=== PATIENT | female | born 1985 | race Caucasian/White ===

== ENCOUNTER → 2016-09-30 | Outpatient (CLI) | payer OTHER ==
[~2016-09-30] MED LIST: BUPR150T5 PO; LEVO25TA PO; SERT-234 PO
== END | disposition home or self-care (01) ==
LOC: C.PATHSPEC 14:56
PROVIDERS: ATTEND Obstetrics & Gynecology
DX: N90.89 Other specified noninflammatory disorders of vulva and perineum (principal)

== ENCOUNTER 2018-07-15 07:47 | Inpatient (IN) ==
[2018-07-15] MEDS ORDERED: BUTALBITAL/ACETAMIN/CAFFEINE TAB PO PRN (07:58)
[2018-07-15] MEDS ORDERED: OXYTOCIN 30 UNITS/500 ML BAG IV PRN ×2 (07:59)
[2018-07-15] MEDS ORDERED: LACTATED RINGER'S 1,000 ML IV PRN ×3 (07:59→18:02)
[2018-07-15 08:21] LABS: Hematocrit (blood only) 34.3 % (37-47); Hemoglobin 11.3 g/dL (12.0-16.0); Mean Corpuscular Volume 84.7 fL (80-100); Mean Platelet Volume 9.4 fL (7.4-10.4); Platelet Count 247 K/uL (130-400); RDW Coefficient of Variation 14.2 % (11.5-14.5); RDW Standard Deviation 43.9 fL (36.4-46.3); Red Blood Count 4.05 M/uL (4.2-5.4); White Blood Count 7.94 K/uL (4.8-10.8)
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
[2018-07-15] MEDS ORDERED: PENICILLIN G POTASSIUM 6 MU in DEXTROSE 5% 250 ML IV ONE (08:30)
[2018-07-15 08:32] LABS: Mean Corpuscular Hgb Conc 32.9 g/dL (32-36)
[2018-07-15] MEDS: LACTATED RINGER'S 1,000 ML IV SCH ×3 (09:15→21:25)
[2018-07-15] MEDS: SERTRALINE HCL 100 MG TABLET PO SCH (11:10)
--- NOTE | 2018-07-15 13:19 | Obstetrical Progress Note ---
Date of Service July 15, 2018 Subjective Comfortable, feeling some ctx. FHT Cat 1 [place] Q 2-4. SVE 5/80/-2 AROM clear with brown/red tinge. Physical Exam Vital Signs (Past 24 Hours): Last Vital Signs Temp 36.7 C 07/15/18 11:00 Pulse 83 07/15/18 12:28 Resp 18 07/15/18 11:00 BP 137/87 07/15/18 12:28
[2018-07-15] MEDS: PENICILLIN G POTASSIUM 3 MU in DEXTROSE 5% 100 ML IV PRN ×3 (13:44→21:25)
[2018-07-15] MEDS ORDERED: ePHEDrine sulfate 50 MG/ML AMP ONE (16:11)
[2018-07-15] MEDS ORDERED: BUPIVACAINE 0.25% 30 ML VIAL ONE (16:11)
[2018-07-15] MEDS ORDERED: fentaNYL citrate 100 MCG/2 ML VIAL ONE (16:11)
[2018-07-15] MEDS ORDERED: fentaNYL 2MCG/ML ROPIV 1.25MG/ML 100 ML BAG EPI ONE (16:12)
--- NOTE | 2018-07-15 17:34 | Anesthesiology Consultation ---
Date of Service July 15, 2018 Assessment & Plan Chart Review Chart Review: Patient NOT seen in Pre Admission Testing and Acceptable Risk for Labor Epidural Consults Requested none ASA ASA2 Proposed Anesthesia Anesthesia Type: Labor Epidural Risk / Benefits Reviewed With: PT / POA / Parent / Guardian, Accepts Plan and Informed Consent Obtained NPO Date Last Intake of Fluids: 07/15/18 Time Last Intake of Fluids: 15:00 Date Last Intake of Solids: 07/15/18 Time Last Intake of Solids: 07:00 History Height/Weight Height: 5 ft 8 in Weight: 102.058 kg Allergies Allergy/AdvReac Type Severity Reaction Status Date / Time No Known Allergies Allergy Mild Verified 07/14/18 19:27 Medications Home Medications Medication Instructions Recorded Confirmed Last Taken sertraline [Zoloft] 100 mg PO DAILY #0 tab 04/17/15 07/15/18 07/14/18 23:59 hjifrtjmoq-dezggcsgcxsao-pwdk 1 cap PO Q6H PRN 05/28/18 07/15/18 07/14/18 17:00 [Fioricet] vit-iron fum-folic ac 1 tab PO DAILY 05/28/18 07/15/18 07/14/18 08:30 [ Vitamin] Humulin N NPH Insulin KwikPen 32 units HS 07/14/18 07/15/18 07/14/18 23:59 insulin aspart U-100 [Novolog 22 units TID 07/14/18 07/15/18 07/15/18 06:30 PenFill U-100 Insulin] Active Medications Generic Name Dose Route Start Last Admin Trade Name Freq PRN Reason Stop Dose Admin Lactated Ringer's 1,000 mls @ 125 mls/hr 07/15/18 08:00 07/15/18 16:45 Lr IV 07/17/18 07:59 500 mls/hr .Q8H JESIKA Infusion Penicillin G Potassium 3 mu/ 106 mls @ 100 mls/hr 07/15/18 12:30 07/15/18 17:26 Dextrose IV 07/25/18 12:29 106 mls/hr Q4H PRN Administration Give until delivery Oxytocin 30 units in 500 mls @ 17 mls/hr 07/15/18 07:59 07/15/18 14:55 Pitocin IV 07/17/18 07:58 1.02 units/hr .Q24H PRN 17 mls/hr Labor Induction/Augmentation Titration Protocol 1.02 UNITS/HR Sertraline HCl 100 mg 07/15/18 09:00 07/15/18 11:10 Zoloft PO 08/14/18 08:59 Not Given DAILY JESIKA Past Medical History Medical History Migraines Asthma (Chronic) Resolved, has not used inhaler in years/\. Right cervical radiculopathy (Acute) Lumbar radiculopathy (Acute) Anemia Gestational diabetes Obesity Past Family History Family History Father Hypertension Past Surgical History Surgical History History of appendectomy (Resolved) History of wisdom tooth extraction (Resolved) History of tonsillectomy (Resolved) History of lumbar fusion L4-L5, 2016 Status post repair of glenoid labrum Right hip Past Anesthesia History No Hx of Anesthesia Complications and No Family Hx of Anesthesia Complications History of PONV Yes Motion Sickness Screening History of Motion Sickness: No Social History Smoking Status: Never smoker Hx Alcohol Use: No Hx Substance Use: No substance use type: does not use Exercise / Class Metabolic Activity II 4-5 Yardwork/Stairs/Walk up hill Physical Exam Vital Signs Last Vital Signs Temp 36.7 C 07/15/18 15:06 Pulse 78 07/15/18 17:26 Resp 20 07/15/18 15:06 BP 129/80 07/15/18 16:33 Pulse Ox 94 07/15/18 17:26 Constitutional + obese ENMT Mouth: no dentition abnormality Thyromental Distance: > or= 3.5 Finger Breadths Mallampati Class: II Neck normal visual inspection and trachea midline; neck extension not limited Respiratory normal respiratory effort Auscultation: lungs clear to auscultation bilaterally Cardiovascular Rate/Rhythm: regular rate and regular rhythm Heart Sounds: no murmur Musculoskeletal Spine: lumbar spine normal to inspection; normal cervical ROM Neurologic moves all extremities Motor/Sensory: no sensory deficit Psychiatric Orientation: alert; + not oriented x 3 Testing Laboratory Results 07/15/18 08:11 07/15/18 07/15/18 07/15/18 15:39 13:27 11:34 POC Glucose 86 72 72 07/15/18 09:21 POC Glucose 80
[2018-07-15] MEDS ORDERED: ePHEDrine sulfate 50 MG/ML AMP IV PRN (18:02)
[2018-07-15] MEDS ORDERED: ONDANSETRON INJ 2 MG/ML 2 ML VIAL IV PRN (18:02)
[2018-07-15] MEDS ORDERED: NALOXONE HCL 0.4 MG/1 ML VIAL/CARP IV PRN (18:02)
[2018-07-15] MEDS ORDERED: DiphenhydrAMINE HCL 50 MG/ML VIAL IV PRN (18:02)
[2018-07-15] MEDS ORDERED: NALBUPHINE HCL INJ 10 MG/ML AMP IV PRN (18:02)
[2018-07-15] MEDS ORDERED: PROMETHAZINE HCL 25 MG in SODIUM CHLORIDE 0.9% 50 ML IV PRN (18:02)
[2018-07-15] MEDS ORDERED: NALOXONE HCL 1 MG in SODIUM CHLORIDE 0.9% 1000ML 1,000 ML IV PRN (18:02)
[2018-07-15] MEDS ORDERED: fentaNYL 2MCG/ML ROPIV 1.25MG/ML 100 ML BAG EPI PRN (18:02)
[2018-07-15] MEDS ORDERED: ONDANSETRON INJ 2 MG/ML 2 ML VIAL ONE (18:04)
--- NOTE | 2018-07-15 19:06 | Obstetrical Progress Note ---
Date of Service July 15, 2018 Subjective Comfortable with epidural. FHT Cat 1 [place] Q 2-3 SVE 5-6/90/-1. Bloody show. Continue to labor. Physical Exam Vital Signs (Past 24 Hours): Last Vital Signs Temp 36.7 C 07/15/18 15:06 Pulse 77 07/15/18 19:02 Resp 20 07/15/18 15:06 BP 139/79 07/15/18 19:01 Pulse Ox 90 07/15/18 19:02
[2018-07-15] MEDS ORDERED: ACETAMINOPHEN 500 MG TAB PO STA (21:28)
--- NOTE | 2018-07-15 22:41 | Obstetrical Progress Note ---
Date of Service July 15, 2018 Subjective Comfortable with epidural. Had headache, BP ok, tylenol has helped. FHT Cat 1 [place] Q 2 SVE 6-7/90/-2 IUPC placed. Continue to labor. Physical Exam Vital Signs (Past 24 Hours): Last Vital Signs Temp 37.2 C 07/15/18 20:30 Pulse 86 07/15/18 22:35 Resp 18 07/15/18 21:47 BP 135/79 07/15/18 22:31 Pulse Ox 96 07/15/18 22:35
[2018-07-16] MEDS ORDERED: fentaNYL citrate 100 MCG/2 ML VIAL ONE (00:41)
[2018-07-16] MEDS ORDERED: BUPIVACAINE 0.25% 30 ML VIAL ONE (00:41)
[2018-07-16] MEDS ORDERED: fentaNYL citrate 100 MCG/2 ML VIAL IV STA (00:43)
[2018-07-16] MEDS ORDERED: BUPIVACAINE 0.25% 30 ML VIAL INFIL ONE (00:51)
--- NOTE | 2018-07-16 00:56 | Anesthesiology Progress Note ---
Date of Service July 16, 2018 at 0048,patient's epidural was bolused w/ 7 ml 0.25% bupivacaine + 100 mcgs fentanyl + 2 ml 0.9% NSS for a total of 11 ml 0.17% bupivacaine w/incremental aspiration and injection.vital signs are stable. Physical Exam Vital Signs Last Vital Signs Temp 37.5 C 07/15/18 22:30 Pulse 83 07/16/18 00:51 Resp 18 07/16/18 00:26 BP 109/59 L 07/16/18 00:47 Pulse Ox 92 07/16/18 00:51 Results & Data Medications Administered Lactated Ringer's (Lr) 1,000 mls @ 125 mls/hr IV .Q8H JESIKA Stop: 07/17/18 07:59 Last Infusion: 07/15/18 22:25 Dose: 125 mls/hr Documented by: [id number] Infusion: 07/15/18 21:26 Dose: 0 mls/hr Documented by: [id number] Admin: 07/15/18 21:25 Dose: 125 mls/hr Documented by: [id number] Infusion: 07/15/18 19:24 Dose: 125 mls/hr Documented by: [id number] Infusion: 07/15/18 16:45 Dose: 500 mls/hr Documented by: [id number] Admin: 07/15/18 16:22 Dose: 999 mls/hr Documented by: [id number] Infusion: 07/15/18 16:22 Dose: 999 mls/hr Documented by: [id number] Infusion: 07/15/18 16:10 Dose: 999 mls/hr Documented by: [id number] Infusion: 07/15/18 14:55 Dose: 125 mls/hr Documented by: [id number] Infusion: 07/15/18 13:45 Dose: 0 mls/hr Documented by: [id number] Infusion: 07/15/18 10:15 Dose: 125 mls/hr Documented by: [id number] Infusion: 07/15/18 09:17 Dose: 0 mls/hr Documented by: [id number] Admin: 07/15/18 09:15 Dose: 125 mls/hr Documented by: [id number] Penicillin G Potassium 3 mu/ (Dextrose) 106 mls @ 100 mls/hr IV Q4H PRN PRN Reason: Give until delivery Stop: 07/25/18 12:29 Last Admin: 07/15/18 21:25 Dose: 106 mls/hr Documented by: [id number] Infusion: 07/15/18 18:26 Dose: 106 mls/hr Documented by: [id number] Admin: 07/15/18 17:26 Dose: 106 mls/hr Documented by: [id number] Infusion: 07/15/18 14:50 Dose: 0 mls/hr Documented by: [id number] Admin: 07/15/18 13:44 Dose: 106 mls/hr Documented by: [id number] Oxytocin (Pitocin) 30 units in 500 mls @ 19 mls/hr IV .Q24H PRN; Protocol PRN Reason: Labor Induction/Augmentation Stop: 07/17/18 07:58 Last Titration: 07/15/18 19:00 Dose: 1.14 units/hr, 19 mls/hr Documented by: [id number] Titration: 07/15/18 14:55 Dose: 1.02 units/hr, 17 mls/hr Documented by: [id number] Titration: 07/15/18 14:24 Dose: 0.9 units/hr, 15 mls/hr Documented by: [id number] Titration: 07/15/18 12:30 Dose: 0.78 units/hr, 13 mls/hr Documented by: [id number] Titration: 07/15/18 12:00 Dose: 0.66 units/hr, 11 mls/hr Documented by: [id number] Titration: 07/15/18 11:30 Dose: 0.54 units/hr, 9 mls/hr Documented by: [id number] Titration: 07/15/18 11:05 Dose: 0.42 units/hr, 7 mls/hr Documented by: [id number] Titration: 07/15/18 10:30 Dose: 0.3 units/hr, 5 mls/hr Documented by: [id number] Titration: 07/15/18 10:00 Dose: 0.18 units/hr, 3 mls/hr Documented by: [id number] Admin: 07/15/18 09:29 Dose: 0.06 units/hr, 1 mls/hr Documented by: [id number] Cosigned by: [id number] Ropivacaine (Epidural (L&D)) 100 ml EPI PRN PRN; Protocol PRN Reason: Pain R/T Labor Stop: 07/16/18 18:01 Last Admin: 07/16/18 00:49 Dose: 100 ml Documented by: [id number] Cosigned by: [id number] Sertraline HCl (Zoloft) 100 mg PO DAILY JESIKA Stop: 08/14/18 08:59 Last Admin: 07/15/18 11:10 Dose: Not Given Documented by: [id number]
[2018-07-16] MEDS: PENICILLIN G POTASSIUM 3 MU in DEXTROSE 5% 100 ML IV PRN ×2 (01:33→05:26)
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
[2018-07-16] MEDS: LACTATED RINGER'S 1,000 ML IV SCH (05:16)
--- NOTE | 2018-07-16 06:46 | Anesthesia Procedure Note ---
Date of Service July 16, 2018 Anesthesia Post Epidural Note Vital Signs Vital Signs: Temp Pulse Resp BP Pulse Ox 37.4 C 90 18 135/76 98 07/16/18 06:00 07/16/18 06:45 07/16/18 06:00 07/16/18 06:45 07/16/18 06:35 Notes Mental Status: alert / awake / arousable Nausea / Vomiting: adequately controlled Pain: adequately controlled Airway Patency, RR, SpO2: stable & adequate BP & HR: stable & adequate Hydration State: stable & adequate Neuraxial Anesthesia: was administered Anesthetic Complications: no major complications apparent Epidural: Removed without complications and With tip intact
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
[2018-07-16 06:58] LABS: Base Excess Cord Venous Blood -5.1 mEq/L (-7.7-1.9); Cord Venous Blood HCO3 18 mmol/L (18.4-26.8); Cord Venous Blood PCO2 30 mmHg (30.4-57.2); Cord Venous Blood PO2 33 mmHg (14.1-43.3)
[2018-07-16 07:02] LABS: Base Excess Cord Arterial Bld -4.8 mEq/L (-9-1.8); CO2 Cord Arterial Blood 52 mmHg (39.1-73.5); HCO3 Cord Arterial Blood 23 mmol/L (19.7-28.5); pH Cord Arterial Blood 7.26 (7.1-7.38)
[2018-07-16] MEDS: IBUPROFEN 600 MG TAB PO PRN ×4 (07:14→21:29)
[2018-07-16] MEDS: SERTRALINE HCL 100 MG TABLET PO SCH (10:22)
[2018-07-16] MEDS ORDERED: OXYTOCIN 30 UNITS/500 ML BAG IV PRN (10:24)
[2018-07-16] MEDS ORDERED: OXYCODONE/ACETAMINOPHEN 5mg/325mg TAB PO PRN (10:24)
[2018-07-16] MEDS ORDERED: BISACODYL 10 MG SUPP PR PRN (10:24)
[2018-07-16] MEDS ORDERED: HYDROCORTISONE ACETATE 25 MG SUPP PR PRN (10:24)
[2018-07-16] MEDS ORDERED: SUPERCREAM 0.870% 15 GM JAR EXT PRN (10:24)
[2018-07-16] MEDS ORDERED: BENZOCAINE 20% AER SPR 82.5 GM CAN EXT PRN (10:24)
[2018-07-16] MEDS ORDERED: DIPHTHERIA/TETANUS/PERTUSSIS 0.5 ML SYR/VIAL IM ONE (10:24)
[2018-07-16] MEDS: PRENATAL VITAMIN 1 TAB PO SCH (13:26)
[2018-07-16] MEDS: DOCUSATE SODIUM 100 MG CAP PO SCH ×2 (13:26→19:48)
[2018-07-16] MEDS: ACETAMINOPHEN 325 MG TAB PO PRN (19:48)
[2018-07-17] MEDS: IBUPROFEN 600 MG TAB PO PRN ×5 (02:57→23:25)
[2018-07-17] MEDS: ACETAMINOPHEN 325 MG TAB PO PRN (06:10)
[2018-07-17 06:14] LABS: Hematocrit (blood only) 30.7 % (37-47); Hemoglobin 9.7 g/dL (12.0-16.0)
--- NOTE | 2018-07-17 07:27 | Obstetrical Progress Note ---
Date of Service <Amarjit Hart - Last Filed: 07/17/18 07:27> July 17, 2018 Assessment & Plan <Amarjit HartDO - Last Filed: 07/17/18 07:27> (1) Spontaneous vaginal delivery: 32 y/o , at 38 weeks - PPD #1, continue routine post- care, encourage ambulation, encourage (2) Insulin controlled gestational diabetes mellitus (GDM) in third trimester: IUP at 38 weeks with poorly controlled GDM on insulin for IOL. Subjective <Amarjit HartDO - Last Filed: 07/17/18 07:27> Ambulation: ambulating normally Voiding: no voiding problems Passing Gas:: Yes Diet Tolerance:: regular diet Lochia:: Small Feeding Type:: breast feeding Karo states she is doing well today, no acute events overnight. She denies fever, chills, chest pains, shortness of breath, nausea, vomiting. Physical Exam <Amarjit HartDO - Last Filed: 07/17/18 07:27> Vital Signs (Past 24 Hours) Last Vital Signs Temp 36.8 C 07/17/18 03:40 Pulse 71 07/17/18 03:40 Resp 18 07/17/18 03:40 BP 135/82 07/17/18 03:40 Pulse Ox 98 07/16/18 09:30 Constitutional WD/WN, vitals as above cooperative and comfortable Eyes + anicteric sclerae and EOM intact bilaterally Neck normal visual inspection and trachea midline Respiratory normal respiratory effort, lungs clear to auscultation Cardiovascular Rate/Rhythm: regular rate and regular rhythm Heart Sounds: no murmur Gastrointestinal (Abdomen) uterine fundus is firm, non-tender, 3cm inferior to umbilicus Musculoskeletal Head/Neck/Chest: normocephalic and head atraumatic Skin no rashes, warm and dry Neurologic moves all extremities and awake Psychiatric A+Ox3, euthymic affect Results & Data <Amarjit HartDO - Last Filed: 07/17/18 07:27> Laboratory Results Laboratory Results - last 24 hr 07/17/18 06:01 Hgb 9.7 L Hct 30.7 L Medications Administered Acetaminophen (Tylenol) 650 mg PO Q6H PRN PRN Reason: Pain/PETERS/Fever Stop: 08/15/18 10:23 Last Admin: 07/17/18 06:10 Dose: 650 mg Documented by: [id number] Admin: 07/16/18 19:48 Dose: 650 mg Documented by: [id number] Benzocaine (Dermoplast Pain Relieving [place]) 1 appln EXT PRN PRN PRN Reason: Perineal Discomfort Stop: 08/15/18 10:23 Last Admin: 07/16/18 13:29 Dose: 1 appln Documented by: [id number] Docusate Sodium (Colace) 100 mg PO BID [facility] Stop: 08/15/18 10:23 Last Admin: 07/16/18 19:48 Dose: 100 mg Documented by: [id number] Admin: 07/16/18 13:26 Dose: 100 mg Documented by: [id number] Ibuprofen (Motrin) 600 mg PO Q4H PRN PRN Reason: Pain/PETERS/Cramping/Fever Stop: 08/15/18 06:40 Last Admin: 07/17/18 02:57 Dose: 600 mg Documented by: [id number] Admin: 07/16/18 21:29 Dose: 600 mg Documented by: [id number] Admin: 07/16/18 17:47 Dose: 600 mg Documented by: [id number] Admin: 07/16/18 12:34 Dose: 600 mg Documented by: [id number] Admin: 07/16/18 07:14 Dose: 600 mg Documented by: [id number] Prenat Multivit/[place]/Iron/Folic Ac ( Vitamin) 1 tab PO QAM [facility] Stop: 08/15/18 10:23 Last Admin: 07/16/18 13:26 Dose: 1 tab Documented by: [id number] Sertraline HCl (Zoloft) 100 mg PO DAILY [facility] Stop: 08/14/18 08:59 Last Admin: 07/16/18 10:22 Dose: 100 mg Documented by: [id number] Admin: 07/15/18 11:10 Dose: Not Given Documented by: [id number] <Lonnie Weaver MD - Last Filed: 07/27/18 18:16> Co-Signing Physician Notes Patient evaluated and agree findings and plan
[2018-07-17] MEDS: DOCUSATE SODIUM 100 MG CAP PO SCH ×2 (07:47→19:55)
[2018-07-17] MEDS: PRENATAL VITAMIN 1 TAB PO SCH (07:48)
[2018-07-17] MEDS: SERTRALINE HCL 100 MG TABLET PO SCH (07:48)
[2018-07-17] MEDS ORDERED: BISACODYL 5 MG TABEC PO SCH (20:00)
[2018-07-18] MEDS: DOCUSATE SODIUM 100 MG CAP PO SCH (07:32)
[2018-07-18] MEDS: PRENATAL VITAMIN 1 TAB PO SCH (07:32)
[2018-07-18] MEDS: SERTRALINE HCL 100 MG TABLET PO SCH (07:32)
--- NOTE | 2018-07-18 08:19 | Obstetrical Progress Note ---
Date of Service July 18, 2018 Assessment & Plan (1) Insulin controlled gestational diabetes mellitus (GDM) in third trimester: (2) Spontaneous vaginal delivery: doing well, routine care, f/u 6 wks pp check. breast feeding. given labile bp, will plan office bp check in one wk. Day #:: 2 Subjective Ambulation: ambulating normally Voiding: no voiding problems Diet Tolerance:: regular diet Lochia:: Small Feeding Type:: breast feeding pt having occas bp elevations and also very normal values. no complaints like mccray or visual change. ready to go home. Physical Exam Vital Signs (Past 24 Hours) Last Vital Signs Temp 36.7 C 07/17/18 23:30 Pulse 73 07/17/18 23:30 Resp 18 07/17/18 23:30 BP 134/81 07/17/18 23:30 Pulse Ox 96 07/17/18 23:30 Constitutional WD/WN, vitals as above Respiratory normal respiratory effort, lungs clear to auscultation Cardiovascular Rate/Rhythm: regular rate and regular rhythm Gastrointestinal (Abdomen) Inspection/Auscultation: abdomen normal to inspection Percussion/Palpation: abdomen soft fundus firm 2 cm below umbilicus Musculoskeletal nt calves. Psychiatric A+Ox3, euthymic affect
== END 2018-07-18 11:15 | disposition home or self-care (01) | DRG 807 ==
LOC: 4S1 07:47 → 4S2 07-16 09:00
DX: O70.0 First degree perineal laceration during delivery; Z3A.38 38 weeks gestation of pregnancy; O24.424 Gestational diabetes mellitus in childbirth, insulin controlled; Z79.4 Long term (current) use of insulin; Z37.0 Single live birth

== ENCOUNTER 2018-08-28 16:52 | Inpatient (IN) ==
[2018-08-28] MEDS ORDERED: ACETAMINOPHEN 500 MG TAB PO STA (17:32)
[2018-08-28] MEDS ORDERED: SODIUM CHLORIDE 0.9% 1000ML 1,000 ML IV SCH (17:45)
[2018-08-28] MEDS ORDERED: cefTRIAXone SODIUM 1,000 MG/50 ML BAG IV STA (18:01)
[2018-08-28] MEDS ORDERED: ONDANSETRON INJ 2 MG/ML 2 ML VIAL IV STA (18:01)
[2018-08-28 18:20] LABS: Eosinophils # (auto) 0.05 K/uL (0-0.5); Eosinophils % (auto) 0.6 %; Hematocrit (blood only) 34.7 % (37-47); Hemoglobin 11.4 g/dL (12.0-16.0); Immature Granulocytes # (auto) 0.01 K/uL (0.00-0.02); Immature Granulocytes % (auto) 0.1 %; Lymphocytes # (auto) 0.84 K/uL (1.2-3.4); Lymphocytes % (auto) 9.9 %; Mean Corpuscular Hgb Conc 32.9 g/dL (32-36); Mean Corpuscular Volume 83.4 fL (80-100); Mean Platelet Volume 8.7 fL (7.4-10.4); Monocytes # (auto) 0.72 K/uL (0.11-0.59); Monocytes % (auto) 8.5 %; Neutrophils # (auto) 6.84 K/uL (1.4-6.5); Neutrophils % (auto) 80.9 %; Platelet Count 272 K/uL (130-400); RDW Coefficient of Variation 15.2 % (11.5-14.5); RDW Standard Deviation 46.9 fL (36.4-46.3); Red Blood Count 4.16 M/uL (4.2-5.4); White Blood Count 8.46 K/uL (4.8-10.8)
[2018-08-28 18:38] LABS: Albumin Level 3.7 gm/dl (3.4-5.0); BUN Creatinine Ratio 14.2 (10-20); Creatinine Clr Calc Pharmacy 126.5 ml/min; Est GFR (African American) 123.1; Est GFR (Non-African American) 106.2; Potassium 3.5 mmol/L (3.5-5.1)
[2018-08-28 18:41] LABS: Albumin Globulin Ratio 0.8 (0.9-2); Bilirubin,Total 0.4 mg/dl (0.2-1); Globulin 4.8 gm/dl (2.5-4.0); Total Protein 8.5 gm/dl (6.4-8.2)
[2018-08-28] MEDS ORDERED: MoRPHine SULFATE 4 MG/ML 1 ML CARP\\VIAL IV STA (19:32)
[2018-08-28] MEDS ORDERED: IBUPROFEN 200 MG/10 ML UDC PO STA (19:41)
[2018-08-28] MEDS ORDERED: SODIUM CHLORIDE 0.9% 1000ML 1,000 ML IV ONE (19:41)
--- NOTE | 2018-08-28 20:05 | History & Physical Report ---
Date of Service August 28, 2018 32-year-old woman who presents 6 weeks post delivery with mastitis she is been treated through 3 courses of mastitis most recently by Dr. Marin with outpatient dicloxacillin she states she is worsening since that day Thursday of this week and had fever and chills today she called me I did offer the emergency room and she came in at this stage she reports fevers chills and discomfort on the left breast redness just generally feeling unwell some discharge from the breast as well she has significant pain Assessment & Plan (1) Mastitis: Admission for IV antibiotics she is failed cephalosporins and dicloxacillin will start vancomycin IV with the pharmacy consult pain medication hopefully she improves over 48 hours if she fails to we will consider imaging the breast for possible abscess History of Present Illness Primary Care Provider: Felipe Wheatley DO Allergies Allergy/AdvReac Type Severity Reaction Status Date / Time No Known Allergies Allergy Mild Verified 08/28/18 19:22 Home Medications Home Medications Medication Instructions Recorded Confirmed Type sertraline [Zoloft] 100 mg PO HS #0 tab 04/17/15 08/28/18 History Vitamin 1 tab PO QAM 05/28/18 08/28/18 History acetaminophen [Tylenol Extra 500 mg PO Q6H PRN 08/28/18 08/28/18 History Strength] dicloxacillin 500 mg PO QID 08/28/18 08/28/18 History ibuprofen 200 mg PO Q6H PRN 08/28/18 08/28/18 History lecithin 1,200 mg PO TID 08/28/18 08/28/18 History norethindrone (contraceptive) 0.35 mg PO HS 08/28/18 08/28/18 History Patient History Medical History Mastitis (Acute) Migraines Asthma (Chronic) Resolved, has not used inhaler in years/\. SI (sacroiliac) joint dysfunction (Chronic) Right cervical radiculopathy (Acute) Lumbar radiculopathy (Acute) PTSD (post-traumatic stress disorder) (Chronic) Anemia Gestational diabetes Obesity Surgical History History of appendectomy (Resolved) History of wisdom tooth extraction (Resolved) History of tonsillectomy (Resolved) Status post arthroscopy of hip (Resolved) History of lumbar fusion L4-L5, 2016 Status post repair of glenoid labrum Right hip Family History Father Hypertension Social History Preferred Language: Japanese Communication Ability: Effective Beliefs That Will Affect Care: None marital status: Current Living Situation: Spouse Feels Safe at Home: Yes Smoking Status: Never smoker Hx Alcohol Use: No Hx Substance Use: No Physical Exam Constitutional: + ill appearing Respiratory: normal respiratory effort, lungs clear to auscultation Cardiovascular: RRR, no murmur, no edema Chest (Breasts): Additional Comments: Diffuse redness on the left breast the breast is very uncomfortable the right breast is normal I cannot palpate any obvious abscess but the breast is tender Results & Data Vital Signs (Past 12 Hours) Vital Signs Temp Pulse Pulse Resp BP BP Pulse Ox 08/28/18 19:40 95 08/28/18 19:39 39.3 C H 114 H 18 121/67 95 08/28/18 16:54 37.9 C H 110 H 20 134/79 97
[2018-08-28] MEDS ORDERED: VANCOMYCIN CONSULT ACTIVE PRN (20:46)
[2018-08-28] MEDS ORDERED: ONDANSETRON INJ 2 MG/ML 2 ML VIAL IV PRN (20:46)
[2018-08-28] MEDS ORDERED: ACETAMINOPHEN 325 MG TAB PO PRN (20:46)
[2018-08-28] MEDS ORDERED: VANCOMYCIN HCL 2,000 MG in SODIUM CHLORIDE 0.9% 500 ML IV ONE (21:30)
[2018-08-28] MEDS: OXYCODONE/ACETAMINOPHEN 5mg/325mg TAB PO PRN (21:48)
[2018-08-28] MEDS: LACTATED RINGER'S 1,000 ML IV SCH (21:49)
--- NOTE | 2018-08-28 22:02 | Emergency Department Note ---
Entered by Cha Dockery acting as a scribe for History of Present Illness General Chief complaint: Fever Stated complaint: MASTITIS - PAIN,FEVER,CHILLS,HEAD & BODY ACHE Source: patient Mode of arrival: ambulatory Limitations: no limitations History of Present Illness Provider complaint: Fever Onset (ago): hour(s) (today) Severity: similar to prior episodes (similar to fever 3 days ago) Pain Consistency: + other (worsening) Maximum Pain Intensity: 6 Quality: + other (fever) Associated symptoms: + headaches and + other (Additional symptoms: mastitis, body aches) The patient is a 32 year old female who presents to the Emergency Room with complaints of a worsening fever starting today. The patient reports that she developed a fever 3 days ago and was subsequently prescribed antibiotics when she called Dr. Marin. She states that her fevers resolved after she started taking the antibiotics but returned today. She notes that she is also currently suffering from mastitis. She reports that she had a full term vaginal 6 weeks ago. She states that she is currently breast-feeding and has experienced 2 prior episodes of mastitis. She notes that the first episode occurred a week after giving and was located on the right side and that the second episode occurred 2 weeks ago and was located on both sides. She states that her second episode was treated with Doxycycline. The patient reports that her current episode is also located on both sides and is characterized by redness, bilateral pain, and pus. She notes that she has continued to pump milk despite her symptoms. She adds that her mastitis has been accompanied by flu-like symptoms such as body aches and headaches. She states that she sees [facility] and talked to Dr. Fine about her symptoms earlier today. Home Medications Home Medications Medication Instructions Recorded Confirmed Type sertraline [Zoloft] 100 mg PO HS #0 tab 04/17/15 08/28/18 History Vitamin 1 tab PO QAM 05/28/18 08/28/18 History acetaminophen [Tylenol Extra 500 mg PO Q6H PRN 08/28/18 08/28/18 History Strength] dicloxacillin 500 mg PO QID 08/28/18 08/28/18 History ibuprofen 200 mg PO Q6H PRN 08/28/18 08/28/18 History lecithin 1,200 mg PO TID 08/28/18 08/28/18 History norethindrone (contraceptive) 0.35 mg PO HS 08/28/18 08/28/18 History Allergies Allergy/AdvReac Type Severity Reaction Status Date / Time No Known Allergies Allergy Mild Verified 08/28/18 19:22 Past Med/Surg History Medical History Mastitis (Acute) Migraines Asthma (Chronic) Resolved, has not used inhaler in years/\. SI (sacroiliac) joint dysfunction (Chronic) Right cervical radiculopathy (Acute) Lumbar radiculopathy (Acute) PTSD (post-traumatic stress disorder) (Chronic) Anemia Gestational diabetes Obesity Surgical History History of appendectomy (Resolved) History of wisdom tooth extraction (Resolved) History of tonsillectomy (Resolved) Status post arthroscopy of hip (Resolved) History of lumbar fusion L4-L5, 2016 Status post repair of glenoid labrum Right hip Family History Father Hypertension Social History Preferred Language: Nepali Communication Ability: Effective Banking Services Officer Required: No Beliefs That Will Affect Care: None marital status: Current Living Situation: Alone Current Living Situation Comment: lives with 6-wk-old baby, no other adults Other Information That Helps Us Care for You: No Feels Safe at Home: Yes Safety Concerns: Feels Safe At This Time Smoking Status: Never smoker Do You Dip or Chew Tobacco: No Second Hand Exp osure: No Tobacco Cessation Education Requested by Patient: No Hx Alcohol Use: Yes (not currently) Alcohol type: beer Hx Substance Use: No Review of Systems See HPI for pertinent positives & negatives. and A total of 10 systems reviewed and were otherwise negative Physical Exam Vital Signs Vital Signs - 24 hr 08/28/18 16:54 08/28/18 19:39 08/28/18 19:40 Temperature 37.9 C H 39.3 C H Temperature Source Oral Oral Sepsis Recent Fever Within 48 Hours No Sepsis New/Unexplained Change in Mental Status No Sepsis Action Taken by Nursing No Action Required Pulse Rate 110 H Pulse Rate [Right Finger] 114 H Respiratory Rate 20 18 Respiratory Effort / Characteristics Non-Labored Spontaneous Respiratory Depth Normal Respiratory Pattern Regular Blood Pressure 134/79 Blood Pressure [Left Arm] 121/67 Blood Pressure Mean 97 Blood Pressure Mean [Left Arm] 85 Blood Pressure Position [Left Arm] Lying Pulse Oximetry 97 95 95 Oxygen Delivery Method Room Air Room Air GENERAL: sitting up in bed with chills, minimal distress EYE EXAM: normal conjunctiva, PERRL and EOM's grossly intact OROPHARYNX: no exudate, no erythema, lips, buccal mucosa, and tongue normal and mucous membranes are moist NECK: supple, no nuchal rigidity, no adenopathy, non-tender LUNGS: Clear to auscultation. Normal chest wall mechanics HEART: Tachycardic rate, no murmurs, S1 normal and S2 normal BREASTS: Small amount of mild draining from bilateral nipples. Tenderness from 1 o'clock to 5 o'clock position with erythema on the right breast. Left breast has no significant erythema. ABDOMEN: abdomen soft, non-tender, normo-active bowel sounds, no masses, no rebound or guarding. BACK: Back is symmetrical on inspection and there is no deformity, no midline tenderness, no CVA tenderness. SKIN: no rashes and no bruising UPPER EXTREMITIES: upper extremities are grossly normal. LOWER EXTREMITIES: No pitting edema. NEURO EXAM: Normal sensorium, cranial nerves II-XII grossly intact, normal speech, no gross weakness of arms, no gross weakness of legs. Course ED COURSE: Vital signs were reviewed and were normal. The patients medical record was reviewed. The above diagnostic studies were performed and reviewed. ED treatments and interventions as stated above. 1723: The patient was evaluated in room C6. A complete history and physical examination was performed. 1921: I reviewed the patient's case with Dr. Fine - FAMILY WORKER, [facility]. Dr. Fine will evaluate the patient for further management. Based on the patients age, coexisting illnesses, exam and lab findings the decision to treat as an inpatient was made. The patient remained stable while under my care The patient will be evaluated for further management. Consultations Consultation #1: I reviewed the patient's case with Dr[facility] Fine [facility] Fine will evaluate the patient for further management. Time: 19:21 Administered Medications Lactated Ringer's (Lr) 1,000 mls @ 125 mls/hr IV .Q8H JESIKA Stop: 09/27/18 20:45 Last Admin: 08/28/18 21:49 Dose: 125 mls/hr Documented by: [id number] Oxycodone/Acetaminophen (Percocet 5mg/325mg) 1 tab PO Q4H PRN PRN Reason: Pain Stop: 09/11/18 19:44 Last Admin: 08/28/18 21:48 Dose: 1 tab Documented by: [id number] Discontinued Medications Acetaminophen (Tylenol) 1,000 mg PO NOW STA Stop: 08/28/18 17:33 Last Admin: 08/28/18 18:09 Dose: 1,000 mg Documented by: [id number] Sodium Chloride (Nss 1000ml) 1,000 mls @ 999 mls/hr IV .Q1H1M JESIKA Stop: 08/28/18 18:45 Last Infusion: 08/28/18 19:38 Dose: 0 mls/hr Documented by: [id number] Admin: 08/28/18 18:09 Dose: 999 mls/hr Documented by: [id number] Ceftriaxone Sodium (Rocephin) 1,000 mg in 50 mls @ 100 mls/hr IV NOW STA Stop: 08/28/18 18:30 Last Infusion: 08/28/18 19:38 Dose: 0 mls/hr Documented by: [id number] Admin: 08/28/18 18:09 Dose: 100 mls/hr Documented by: [id number] Sodium Chloride (Nss 1000ml) 1,000 mls @ 999 mls/hr IV .Q1H1M ONE Stop: 08/28/18 20:41 Last Infusion: 08/28/18 20:40 Dose: 0 mls/hr Documented by: [id number] Admin: 08/28/18 19:46 Dose: 999 mls/hr Documented by: [id number] Ibuprofen (Motrin) 400 mg PO NOW STA Stop: 08/28/18 19:42 Last Admin: 08/28/18 19:45 Dose: 400 mg Documented by: [id number] Morphine Sulfate (Morphine Sulfate) 3 mg IV NOW STA Stop: 08/28/18 19:33 Last Admin: 08/28/18 19:46 Dose: 3 mg Documented by: [id number] Ondansetron HCl (Zofran) 4 mg IV NOW STA Stop: 08/28/18 18:02 Last Admin: 08/28/18 18:09 Dose: 4 mg Documented by: [id number] Medical Decision Making Differential Diagnosis Differential diagnosis includes etiologies such as sepsis, UTI, pneumonia, metabolic, electrolyte abnormalities, cardiac sources, intracerebral event, toxicologic, neurologic, as well as others were entertained. Medical Records Attestation: I reviewed the patient's medical records. Home Medications Current Medication List: was personally reviewed by me Laboratory Data Attestation: I reviewed the patient's lab results. Result diagrams: 08/28/18 18:01 08/28/18 18:01 Lab Results 08/28/18 08/28/18 08/28/18 Range/Units 18:01 18:01 19:33 WBC 8.46 (4.8-10.8) K/uL RBC 4.16 L (4.2-5.4) M/uL Hgb 11.4 L (12.0-16.0) g/dL Hct 34.7 L (37-47) % MCV 83.4 (80-100) fL MCH 27.4 (25-34) pg MCHC 32.9 (32-36) g/dL RDW Std Deviation 46.9 H (36.4-46.3) fL RDW Coeff of Jani 15.2 H (11.5-14.5) % Plt Count 272 (130-400) K/uL MPV 8.7 (7.4-10.4) fL Immature Gran % (Auto) 0.1 % Neut % (Auto) 80.9 % Lymph % (Auto) 9.9 % Overton % (Auto) 8.5 % Eos % (Auto) 0.6 % Baso % (Auto) 0.0 % Immature Gran # (Auto) 0.01 (0.00-0.02) K/uL Neut # (Auto) 6.84 H (1.4-6.5) K/uL Lymph # (Auto) 0.84 L (1.2-3.4) K/uL Overton # (Auto) 0.72 H (0.11-0.59) K/uL Eos # (Auto) 0.05 (0-0.5) K/uL Baso # (Auto) 0.00 (0-0.2) K/uL Sodium 136 (136-145) mmol/L Potassium 3.5 (3.5-5.1) mmol/L Chloride 102 (98-107) mmol/L Carbon Dioxide 26 (21-32) mmol/L Anion Gap 8.0 (3-11) BUN 11 (7-18) mg/dl Creatinine 0.75 (0.6-1.2) mg/dl Est Cr Clr Drug Dosing 126.5 ml/min Est GFR ( Amer) 123.1 Est GFR (Non-Af Amer) 106.2 BUN/Creatinine Ratio 14.2 (10-20) Glucose 93 (70-99) mg/dl Lactate 2.3 H* (0.4-2.0) mmol/L Calcium 9.0 (8.5-10.1) mg/dl Total Bilirubin 0.4 (0.2-1) mg/dl AST 11 L (15-37) U/L ALT 25 (12-78) U/L Alkaline Phosphatase 75 (45-117) U/L Total Protein 8.5 H (6.4-8.2) gm/dl Albumin 3.7 (3.4-5.0) gm/dl Globulin 4.8 H (2.5-4.0) gm/dl Albumin/Globulin Ratio 0.8 L (0.9-2) Lipase 237 (73-393) U/L Blood Pressure Blood Pressure Findings: Normal blood pressure MDM Narrative Patient is a 32-year-old female who presents the ER for bilateral breast pain. She delivered her child 6 weeks ago. She has been treated for mastitis for a total of 3 times. This is her third treatment. She is been on dicloxacillin as an outpatient for the past several days and has worsening left breast pain. Upon arrival she is found to be febrile and tachycardic. She does have a lactate of 2.6. No significant leukocytosis or anemia. Based on this I do favor that she is septic secondary to a cellulitis/mastitis. Patient was given IV Rocephin. She is given IV fluids oral Tylenol oral Motrin. BMP along with LFTs bilirubin lipase is unremarkable. Case was discussed with the hospitalist and patient was admitted for a further work-up of her sepsis secondary to mastitis. Impression & Plan Sepsis, Mastitis Discharge Plan Visit Data *Final* Discharge Date/Time: 08/28/18 20:33 Chief Complaint: Fever Stated Complaint: MASTITIS - PAIN,FEVER,CHILLS,HEAD & BODY ACHE ED Provider: Emmett Bernard Discharge Problem: Sepsis, Mastitis Patient Disposition: Admitted As Inpatient Discharge Instructions Interventions: ED Discharge Assessment Last Done: 08/28/18 20:33 Discharge Problem: Sepsis Qualifiers: Sepsis type: sepsis due to unspecified organism Qualified Code(s): A41.9 - Sepsis, unspecified organism The scribe's documentation has been prepared under my direction and personally reviewed by me in its entirety. I confirm that the note above accurately reflects all work, treatment, procedures, and medical decision making performed by me.
[2018-08-28] MEDS: SERTRALINE HCL 100 MG TABLET PO SCH (22:35)
[2018-08-28] MEDS ORDERED: PROMETHAZINE HCL 25 MG in SODIUM CHLORIDE 0.9% 50 ML IV PRN (22:49)
[2018-08-28] MEDS: MoRPHine SULFATE 2 MG/ML CARP IV PRN (23:29)
[2018-08-29] MEDS: MoRPHine SULFATE 2 MG/ML CARP IV PRN ×4 (03:42→23:20)
[2018-08-29] MEDS: VANCOMYCIN HCL 1,500 MG in SODIUM CHLORIDE 0.9% 500 ML IV SCH ×3 (06:14→22:08)
[2018-08-29] MEDS: KETOROLAC 30 MG/ML VIAL IV PRN ×2 (07:19→19:40)
--- NOTE | 2018-08-29 07:36 | Progress Note ---
Date of Service Patient admitted yesterday for severe mastitis she is on IV vancomycin at this stage she says her fever is improving she still has pain in the left breast she has decided to stop breast-feeding at this day stage she also complains of a headache August 29, 2018 Physical Exam Physical Exam: Her vital signs are stable she is febrile with a high of 39.2 C she is on vancomycin first-line for acute mastitis we will follow her course for 24 to 48 hours vancomycin assistance from pharmacy pain medication Results & Data Vital Signs (Past 12 Hours) Vital Signs Temp Pulse Pulse Pulse Resp BP BP 08/29/18 05:15 38.5 C H 08/29/18 03:40 39.2 C H 108 H 18 08/29/18 00:05 38.1 C H 08/28/18 23:15 39.1 C H 100 H 20 08/28/18 20:38 37.6 C H 105 H 20 08/28/18 20:33 37.8 C H 105 H 18 121/67 08/28/18 19:40 08/28/18 19:39 39.3 C H 114 H 18 121/67 BP Pulse Ox 08/29/18 05:15 08/29/18 03:40 104/68 96 08/29/18 00:05 08/28/18 23:15 101/65 97 08/28/18 20:38 111/68 95 08/28/18 20:33 96 08/28/18 19:40 95 08/28/18 19:39 95
[2018-08-29 07:52] LABS: Basophils # (auto) 0.01 K/uL (0-0.2); Basophils % (auto) 0.1 %; Hematocrit (blood only) 29.8 % (37-47); Immature Granulocytes # (auto) 0.02 K/uL (0.00-0.02); Immature Granulocytes % (auto) 0.2 %; Lymphocytes # (auto) 2.18 K/uL (1.2-3.4); Lymphocytes % (auto) 16.7 %; Mean Corpuscular Hgb Conc 33.6 g/dL (32-36); Mean Corpuscular Volume 82.8 fL (80-100); Mean Platelet Volume 8.5 fL (7.4-10.4); Monocytes # (auto) 0.81 K/uL (0.11-0.59); Monocytes % (auto) 6.2 %; Neutrophils # (auto) 10.05 K/uL (1.4-6.5); Neutrophils % (auto) 76.8 %; Platelet Count 256 K/uL (130-400); RDW Standard Deviation 48.7 fL (36.4-46.3); White Blood Count 13.07 K/uL (4.8-10.8)
[2018-08-29] MEDS: BUTALBITAL/ACETAMIN/CAFFEINE TAB PO PRN (07:54)
[2018-08-29] MEDS: PRENATAL VITAMIN 1 TAB PO SCH (08:16)
[2018-08-29] MEDS: LACTATED RINGER'S 1,000 ML IV SCH (10:59)
--- NOTE | 2018-08-29 11:18 | Obstetrical Progress Note ---
Date of Service l. August 29, 2018 Results & Data Vital Signs (Past 12 Hours) Vital Signs Temp Pulse Resp BP BP Pulse Ox 08/29/18 07:55 37.6 C H 92 H 20 90/57 L 99 08/29/18 05:15 38.5 C H 08/29/18 03:40 39.2 C H 108 H 18 104/68 96 08/29/18 00:05 38.1 C H
--- NOTE | 2018-08-29 12:12 | Pharmacy Report ---
Pharmacy Abx Initial Consult - Date of Service August 29, 2018 - Pharmacy Dosing Scope Date of Consult: 08/28/18 Consultation requested by: Dr. Fine Pharmacy is consulted to initiate vancomycin IV dosing therapy, order appropriate labs and adjust drug dose/frequency. - Subjective The patient is a 32 year old F admitted on 08/28/18 19:52. - Objective Height: 5 ft 8 in Weight: 88.5 kg Vital Signs (Past 12hrs): Vital Signs Temp Pulse Resp BP BP Pulse Ox 08/29/18 07:55 37.6 C H 92 H 20 90/57 L 99 08/29/18 05:15 38.5 C H 08/29/18 03:40 39.2 C H 108 H 18 104/68 96 08/29/18 00:05 38.1 C H Lab Results (24hrs): Laboratory Tests (24 Hours) 08/29/18 08/28/18 08/28/18 07:08 18:01 18:01 WBC 13.07 H 8.46 Neut # (Auto) 10.05 H 6.84 H Creatinine 0.75 Est Cr Clr Drug Dosing 126.5 - Assessment & Plan Assessment 32 year old F receiving empiric vancomycin for severe mastitis refractory to treatment with multiple PO antibiotics (clindamycin, Bactrim DS, dicloxacillin) Tmax this am: 39.2 WBC: 13.07 Plan Vancomycin IV * Estimated PK Parameters: Vd 0.7 L/kg, Charles 0.104 hr-1, t1/2 6.7 hr, estimated CrCl > 120 mL/min * Loading dose: 2000 mg (22 mg/kg) * Maintenance dose: 1500 mg IV (17 mg/kg) every 8 hours * Will target trough of 15-20 for this severe mastitis * Trough level ordered for 08/30/18 @0530 prior to the 5th dose * Serum creatinine also ordered with am labs * A more aggressive dosing regimen being utilized due to patient currently and severe infection refractory to multiple courses of antibiotics Pharmacy will continue to follow and will adjust dose/frequency as necessary. Thank you.
[2018-08-29] MEDS: IBUPROFEN 600 MG TAB PO PRN (12:31)
[2018-08-29] MEDS: OXYCODONE/ACETAMINOPHEN 5mg/325mg TAB PO PRN ×3 (12:32→20:54)
[2018-08-29] MEDS ORDERED: OXYCODONE/ACETAMINOPHEN 5mg/325mg TAB PO PRN (13:33)
[2018-08-29] MEDS ORDERED: IBUPROFEN 200 MG TAB PO STA (13:34)
--- NOTE | 2018-08-29 15:17 | Obstetrical Progress Note ---
Date of Service Patient is still spiking temperatures although she is only received 2 total doses of vancomycin I have ordered blood cultures would like to give her 48 hours of treatment if this fails consider imaging for possible abscess although clinically on exam I did not palpate one. On review of up-to-date vancomycin is considered first-line for this I have discussed with pharmacy for their input on this as well and they are researching at the moment August 29, 2018 Results & Data Vital Signs (Past 12 Hours) Vital Signs Temp Pulse Resp BP BP Pulse Ox 08/29/18 14:36 38.1 C H 08/29/18 13:30 39.5 C H 111 H 24 111/76 96 08/29/18 12:30 39 C H 08/29/18 11:15 36.9 C 85 18 105/61 96 08/29/18 07:55 37.6 C H 92 H 20 90/57 L 99 08/29/18 05:15 38.5 C H 08/29/18 03:40 39.2 C H 108 H 18 104/68 96
[2018-08-29] MEDS ORDERED: cefTRIAXone SODIUM 1,000 MG in DEXTROSE 5% 50 ML IV SCH (15:30)
--- NOTE | 2018-08-29 16:08 | Obstetrical Progress Note ---
Date of Service spoke with pharmacy, will add Rohithin. August 29, 2018 Results & Data Vital Signs (Past 12 Hours) Vital Signs Temp Pulse Resp BP Pulse Ox 08/29/18 14:36 38.1 C H 08/29/18 13:30 39.5 C H 111 H 24 111/76 96 08/29/18 12:30 39 C H 08/29/18 11:15 36.9 C 85 18 105/61 96 08/29/18 07:55 37.6 C H 92 H 20 90/57 L 99 08/29/18 05:15 38.5 C H
[2018-08-29] MEDS: cefTRIAXone SODIUM 2,000 MG in DEXTROSE 5% 50 ML IV SCH (17:00)
[2018-08-29] MEDS: SERTRALINE HCL 100 MG TABLET PO SCH (20:54)
[2018-08-30] MEDS: OXYCODONE/ACETAMINOPHEN 5mg/325mg TAB PO PRN ×4 (00:47→18:53)
[2018-08-30] MEDS: ZOLPIDEM TARTRATE 10 MG TAB PO PRN ×2 (01:26→23:36)
[2018-08-30] MEDS: LACTATED RINGER'S 1,000 ML IV SCH ×2 (01:26→14:35)
[2018-08-30] MEDS: KETOROLAC 30 MG/ML VIAL IV PRN (04:26)
[2018-08-30] MEDS ORDERED: VANCOMYCIN TROUGH SCH (05:30)
[2018-08-30] MEDS: VANCOMYCIN HCL 1,500 MG in SODIUM CHLORIDE 0.9% 500 ML IV SCH (06:18)
[2018-08-30 06:28] LABS: Basophils # (auto) 0.01 K/uL (0-0.2); Basophils % (auto) 0.1 %; Eosinophils # (auto) 0.17 K/uL (0-0.5); Eosinophils % (auto) 1.7 %; Hematocrit (blood only) 26.4 % (37-47); Hemoglobin 8.6 g/dL (12.0-16.0); Immature Granulocytes # (auto) 0.03 K/uL (0.00-0.02); Immature Granulocytes % (auto) 0.3 %; Lymphocytes # (auto) 2.41 K/uL (1.2-3.4); Lymphocytes % (auto) 23.5 %; Mean Corpuscular Hgb Conc 32.6 g/dL (32-36); Mean Corpuscular Volume 84.6 fL (80-100); Mean Platelet Volume 8.1 fL (7.4-10.4); Monocytes # (auto) 0.77 K/uL (0.11-0.59); Monocytes % (auto) 7.5 %; Neutrophils # (auto) 6.87 K/uL (1.4-6.5); Neutrophils % (auto) 66.9 %; Platelet Count 198 K/uL (130-400); RDW Standard Deviation 49.8 fL (36.4-46.3); Red Blood Count 3.12 M/uL (4.2-5.4); White Blood Count 10.26 K/uL (4.8-10.8)
[2018-08-30 07:04] LABS: Est GFR (African American) 139.3; Est GFR (Non-African American) 120.2
--- NOTE | 2018-08-30 07:07 | Gynecologic Progress Note ---
Date of Service Patient feels much better from the point of febrile activity. She has not had a fever in approximately 24 hours she is on vancomycin and a third-generation ce phalosporin she still complains of a lot of left breast pain and is taking pain medication for this she says she feels much better it is just the pain is not resolving August 30, 2018 Assessment & Plan (1) Mastitis: Improving from a fever point of view will get imaging to rule out abscess on the left breast Physical Exam Chest (Breasts): Additional Comments: Left breast is considerably less red the breast is somewhat engorged I do not feel an obvious breast abscess there is no exquisite tenderness Results & Data Vital Signs (Past 12 Hours) Vital Signs Temp Pulse Pulse Resp BP BP Pulse Ox 08/30/18 04:10 37.2 C 95 H 17 109/68 92 08/29/18 23:15 37.1 C 84 16 114/72 96 08/29/18 19:46 36.8 C 76 18 100/63 96
--- NOTE | 2018-08-30 08:14 | Pharmacy Report ---
Pharmacy Abx Dose Progress Nt - Date of Service August 30, 2018 - Pharmacy Dosing Scope The patient is currently receiving the following antimicrobial agents per Pharmacy consult: Vancomycin 1500mg IV every 8 hours Ceftriaxone 2000mg IV Q24H - Objective Vital Signs (Past 12hrs): Vital Signs Temp Pulse Resp BP Pulse Ox 08/30/18 04:10 37.2 C 95 H 17 109/68 92 08/29/18 23:15 37.1 C 84 16 114/72 96 Lab Results (24hrs): Laboratory Tests (24 Hours) 08/30/18 08/30/18 08/30/18 06:15 06:15 06:15 WBC 10.26 Neut # (Auto) 6.87 H Creatinine 0.62 Est Cr Clr Drug Dosing 153.0 Vancomycin Trough 11.8 Micro Results: 08/29/18 15:33 Aerobic Blood Culture - Pending Blood Anaerobic Blood Culture - Pending 08/29/18 15:49 Aerobic Blood Culture - Pending Blood Anaerobic Blood Culture - Pending - Risk Factors for Resistance * Antimicrobial use within the last 90 days - PO Bactrim, clindamycin, dicloxa cillin - Assessment & Plan Assessment 32 year old F receiving IV vancomycin & ceftriaxone for severe mastitis refractory to treatment with multiple PO antibiotics (clindamycin, Bactrim DS, dicloxacillin) No abscess on palpation, blood cultures drawn, imaging ordered. Patient afebrile today. Day # 3 of antimicrobial therapy Patient has discontinued d/t 3rd episode of mastitis in 6 weeks, now requiring IV antibiotics and hospital admission. Infant with patient and patient's mother in room. Plan Vancomycin IV * Trough level of 11.8 mcg/mL is subtherapeutic * Change to Vancomycin 1750 mg IV every 8 hours will begin 6 hours after last dose * Goal trough level for treatment refractory mastitis : 15 to 20 mcg/mL * Trough level ordered for: 08/31/18 prior to 1200 dose * A more aggressive dosing regimen being utilized due severe infection refractory to multiple courses of antibiotics Ceftriaxone 2000mg IV Q24H -- for Wt > 80kg Pharmacy will continue to follow and will adjust dose/frequency as necessary. Thank you.
[2018-08-30] MEDS: PRENATAL VITAMIN 1 TAB PO SCH (08:26)
[2018-08-30] MEDS: IBUPROFEN 600 MG TAB PO PRN ×4 (08:27→23:36)
--- NOTE | 2018-08-30 09:06 | Ultrasound Report ---
Study: Breast ultrasound. HISTORY: Pain FINDINGS: Mild soft tissue edematous change. No evidence for abscess or collection. Mild prominence o f the subareolar ducts consistent with patient's history of breast-feeding. IMPRESSION: 1. Mild soft tissue edematous change. 2. No evidence for abscess or collection. Electronically signed by: Joss Cabrera M.D. 08/30/2018 9:05 AM
[2018-08-30] MEDS: BUTALBITAL/ACETAMIN/CAFFEINE TAB PO PRN (10:16)
[2018-08-30] MEDS: VANCOMYCIN HCL 1,750 MG in SODIUM CHLORIDE 0.9% 500 ML IV SCH ×2 (11:52→20:05)
[2018-08-30] MEDS: cefTRIAXone SODIUM 2,000 MG in DEXTROSE 5% 50 ML IV SCH (16:32)
[2018-08-30] MEDS ORDERED: MAGNESIUM HYDROXIDE SUSP 30 ML UDC PO PRN (16:53)
[2018-08-30] MEDS: DOCUSATE SODIUM 100 MG CAP PO SCH (20:09)
[2018-08-30] MEDS: SERTRALINE HCL 100 MG TABLET PO SCH (20:09)
[2018-08-30] MEDS ORDERED: LORazepam 0.5 MG TAB PO PRN (20:31)
[2018-08-30] MEDS: MoRPHine SULFATE 2 MG/ML CARP IV PRN (21:19)
[2018-08-31] MEDS: OXYCODONE/ACETAMINOPHEN 5mg/325mg TAB PO PRN ×5 (03:36→23:20)
[2018-08-31] MEDS: VANCOMYCIN HCL 1,750 MG in SODIUM CHLORIDE 0.9% 500 ML IV SCH ×3 (03:37→20:02)
[2018-08-31] MEDS: LACTATED RINGER'S 1,000 ML IV SCH (03:37)
[2018-08-31 06:41] LABS: Creatinine Clr Calc Pharmacy 163.6 ml/min; Est GFR (African American) 142.4; Est GFR (Non-African American) 122.8
[2018-08-31] MEDS: IBUPROFEN 600 MG TAB PO PRN ×3 (07:42→23:20)
[2018-08-31] MEDS: DOCUSATE SODIUM 100 MG CAP PO SCH ×2 (07:42→21:01)
[2018-08-31] MEDS: PRENATAL VITAMIN 1 TAB PO SCH (07:44)
--- NOTE | 2018-08-31 08:16 | Obstetrical Progress Note ---
Date of Service August 31, 2018 Assessment & Plan (1) Mastitis: continue current IV antibiotics as she has been afebrile now since Thursday at 1330. one blood culture is growing gram positive cocci in clusters. no ID or sensitvities yet. Would await ID from blood culture before swithing to po antibiotics. she has already been on dicloxacilin, bactrim DS, cephalexin prior to her admission. coing well since the addition of rocephin to her antibiotic regimen. Present on Admission?: Yes Day #:: 3 Subjective Ambulation: ambulating normally Voiding: no voiding problems Passing Gas:: Yes Diet Tolerance:: regular diet Lochia:: Small Feeding Type:: bottle feeding Current Pain Level(1-10): 5 (continues to have pain however she reports that it is much better. has history of anxiety and received one dose of ativan last even ing which helped her sleep better. requiring narcotics but only every 6-12 hours. still pumping the affected breast but is not going to continue to nurse. ) Review of Systems All systems reviewed & are unremarkable except as noted in HPI & below patient feels right breast is somewhat engorged this morning but not tender. left breast is subjectively feeling less painful as well. Physical Exam Vital Signs (Past 24 Hours) Last Vital Signs Temp 36.7 C 08/31/18 07:30 Pulse 61 08/31/18 07:30 Resp 18 08/31/18 07:30 BP 136/87 08/31/18 07:30 Pulse Ox 97 08/31/18 07:30 Constitutional WD/WN, vitals as above Chest (Breasts) Additional Comments: right breast is without redness or induration or tenderness. left breast without masses but is still indurated but less so & still with some erythema that is also improved.
--- NOTE | 2018-08-31 09:34 | Gynecologic Progress Note ---
Date of Service August 31, 2018 Assessment & Plan (1) Mastitis: responding to iv abx. need to see final on blood cx. i did curbside ID, Dr. Sweeney, will recall him if staph aureus grows but otherwise will consider po course of omnicef and bactrim. will await further micro readings. Subjective pt notes left breast softer today but still on and off painful, requiring percocet and motrin. she has opted to stop nursing and so has been instructed a bout binding and intermittent pumping only to relief. she is concerned about that but realizes now with 3 episodes of mastitis that she will stop. Physical Exam Constitutional: WD/WN, vitals as above Chest (Breasts): Breast: normal palpation of breasts (normal on right. slightly tender on left inferior portion. ) and + breast tenderness (tender on left inferior. bruised appearing but no erythema); no breast mass Results & Data Vital Signs (Past 12 Hours) Vital Signs Temp Pulse Resp BP Pulse Ox 08/31/18 07:30 36.7 C 61 18 136/87 97 08/31/18 03:35 36.6 C 71 20 142/89 H 95 08/30/18 23:30 36.6 C 65 18 132/82 94
[2018-08-31] MEDS ORDERED: VANCOMYCIN TROUGH SCH (11:30)
[2018-08-31 11:34] LABS: Basophils # (auto) 0.02 K/uL (0-0.2); Basophils % (auto) 0.3 %; Eosinophils # (auto) 0.27 K/uL (0-0.5); Eosinophils % (auto) 4.6 %; Hematocrit (blood only) 28.1 % (37-47); Hemoglobin 9.2 g/dL (12.0-16.0); Immature Granulocytes # (auto) 0.05 K/uL (0.00-0.02); Immature Granulocytes % (auto) 0.8 %; Lymphocytes # (auto) 1.67 K/uL (1.2-3.4); Lymphocytes % (auto) 28.2 %; Mean Corpuscular Hgb Conc 32.7 g/dL (32-36); Mean Corpuscular Volume 84.1 fL (80-100); Mean Platelet Volume 8.6 fL (7.4-10.4); Monocytes # (auto) 0.47 K/uL (0.11-0.59); Monocytes % (auto) 7.9 %; Neutrophils # (auto) 3.45 K/uL (1.4-6.5); Neutrophils % (auto) 58.2 %; Platelet Count 221 K/uL (130-400); RDW Coefficient of Variation 15.4 % (11.5-14.5); RDW Standard Deviation 47.9 fL (36.4-46.3); Red Blood Count 3.34 M/uL (4.2-5.4); White Blood Count 5.93 K/uL (4.8-10.8)
[2018-08-31] MEDS: BUTALBITAL/ACETAMIN/CAFFEINE TAB PO PRN ×2 (13:22→19:40)
--- NOTE | 2018-08-31 13:48 | Pharmacy Report ---
Pharmacy Abx Dose Short Note - Date of Service August 31, 2018 - Assessment & Plan Assessment 32 year old F receiving IV vancomycin and ceftriaxone for treatment of mastitis refractory to multiple courses of PO antibiotics Day # 4 of antimicrobial therapy. (08/29) Blood cultures x 2: 1 of 2 growing gram positive cocci in clusters (PCR negative for S.aureus and MRSA) * Possible contamination? Await final results Plan Vancomycin * Trough level of 18.7 mcg/mL is therapeutic * Continue dose of 1750 mg IV every 8 hours * Goal trough level for mastitis (possible bacteremia) : 15 to 20 mcg/mL * Will obtain follow-up trough if patient remains on vancomycin for another 48 hours Ceftriaxone * Continue 2 g IV q24h -dose appropriate based on weight and indication Pharmacy will continue to follow and will adjust dose/frequency as necessary. Thank you.
[2018-08-31] MEDS: cefTRIAXone SODIUM 2,000 MG in DEXTROSE 5% 50 ML IV SCH (16:54)
--- NOTE | 2018-08-31 19:01 | Obstetrical Progress Note ---
Date of Service August 31, 2018 Assessment & Plan (1) Mastitis: still afebrile on iv abx. blood cx still pending. per lab will have more of an idea of organism tomorrow. for now will remain in house for iv abx and see if more suspicious for contaminant if they are able to tell tomorrow. pt made aware by nursing. Results & Data Vital Signs (Past 12 Hours) Vital Signs Temp Pulse Resp BP Pulse Ox 08/31/18 15:15 36.7 C 66 18 138/85 08/31/18 07:30 36.7 C 61 18 136/87 97
[2018-08-31] MEDS: SERTRALINE HCL 100 MG TABLET PO SCH (21:01)
[2018-09-01] MEDS: VANCOMYCIN HCL 1,750 MG in SODIUM CHLORIDE 0.9% 500 ML IV SCH ×2 (03:54→11:09)
--- NOTE | 2018-09-01 07:39 | Gynecologic Progress Note ---
Date of Service September 01, 2018 Assessment & Plan (1) Mastitis: c/w iv abx, last labs with stable hgb and nl wbc. (2) Positive blood culture: per micro will get read on organism by mid day today. only one bottle of four but again, in discussion with ID need to know suspected organism. If not raising concern, out pt abx would be omnicef 300mg po bid and bactrim ds one po bid, i suspect we should plan for 10d. pt uses [facility]. temp curve has been normal. bps are labile. i do not suspect chest tightness is significant as it goes away completely at times. d/w pharmacy and no known association with vanco. pt advised to be ambulatory and do flexion/ext exercises while in bed to prevent dvt and thereby pe. since i don't know her LOS, will get scds to bedside. Subjective pt feels left breast is unchanged since yesterday. still feels sore off and on. hand expressed a little last night as the breast was rock hard but now just binding and using cabbage leaves. has no concern for right breast. no fevers. is noting intermittent chest tightness that she thinks is when the vanco is infusing. i am unaware of association. her vital signs are normal during these episodes. no sob, no leg pain. no sx right now. Physical Exam Constitutional: WD/WN, vitals as above Chest (Breasts): Breast: normal inspection of breasts and + breast tenderness (left breast tendern); + abnormal palpation of breast (right breast normal, soft, nt; left breast more full, min erythema) and no breast mass Musculoskeletal: no calf pain or edema Results & Data Vital Signs (Past 12 Hours) Vital Signs Temp Pulse Resp BP BP Pulse Ox 09/01/18 04:10 36.7 C 63 16 149/83 H 96 08/31/18 23:10 36.5 C 57 L 16 145/92 H 144/91 H 96 08/31/18 20:30 36.5 C 54 L 18 135/86
[2018-09-01 07:47] LABS: Creatinine Clr Calc Pharmacy 150.6 ml/min; Est GFR (African American) 138.5; Est GFR (Non-African American) 119.5
[2018-09-01] MEDS: PRENATAL VITAMIN 1 TAB PO SCH (07:59)
[2018-09-01] MEDS: DOCUSATE SODIUM 100 MG CAP PO SCH (07:59)
[2018-09-01] MEDS: IBUPROFEN 600 MG TAB PO PRN (07:59)
[2018-09-01] MEDS: OXYCODONE/ACETAMINOPHEN 5mg/325mg TAB PO PRN (08:00)
[2018-09-01] MEDS ORDERED: OXYCODONE HCL IR 5 MG TAB (IMMEDIATE RELEASE) PO PRN (10:17)
[2018-09-01] MEDS: BUTALBITAL/ACETAMIN/CAFFEINE TAB PO PRN (14:15)
--- NOTE | 2018-09-01 15:23 | Internal Medicine Consult Note ---
Date of Consultation September 01, 2018 Assessment & Plan (1) Positive blood culture: SEATER GR[employer]ER is considering whether it is a contaminant or source from her mastitis and will eventually make a determination based on culture results and what the home antibiotic will be (2) Blood pressure elevated without history of HTN: Patient's blood pressures been labile during her hospital stay this likely may be attributed to nonsteroidal use which she was taking for pain and headache control. Her initial headache that she had presentation I do not feel was from her hypertension more migrainous in nature and is not recurred. At no time during her hospital stay she had chest pain or pressure. She is somewhat fatigued but this is typical for her state. At this time given the variability of her blood pressure without endorgan strain or damage that we can see by lab work or physical exam I recommend lifestyle modification prior to instituting and medical therapy. The patient's mother does however have hypertension and only takes an angiotensin receptor jayleen and hydrochlorthiazide. This and educated the patient about avoiding caffeinated beverages alcohol beverages and to keep her salt intake less than 2 g a day. She did have recent thyroid checks but this could also be checked a few weeks in the future if she continues to have problems with lability of her blood pressure. History of Present Illness Attending Physician: Miguel Fine MD, FACOG History of Present Illness Consulted for labile hypertension the patient who is few weeks now with mastitis. I entered the room patient was sitting comfortably holding her baby her mother was in the room. Patient states that she feels okay except for fatigue. She had initially had some headache when she presented but this is her typical headache treated as a migraine. Patient is never had issues with blood pressure. She does have a family history with her mother having hypertensive issues. She said no chest pain no recurrence of her had a dyspnea with exertion laboratories upon review are fairly stable. Patient has been given nonsteroidals Allergies Allergy/AdvReac Type Severity Reaction Status Date / Time No Known Allergies Allergy Mild Verified 08/28/18 19:22 Home Medications Home Medications Medication Instructions Recorded Confirmed Type sertraline [Zoloft] 100 mg PO HS #0 tab 04/17/15 08/28/18 History Vitamin 1 tab PO QAM 05/28/18 08/28/18 History acetaminophen [Tylenol Extra 500 mg PO Q6H PRN 08/28/18 08/28/18 History Strength] ibuprofen 200 mg PO Q6H PRN 08/28/18 08/28/18 History lecithin 1,200 mg PO TID 08/28/18 08/28/18 History norethindrone (contraceptive) 0.35 mg PO HS 08/28/18 08/28/18 History oxycodone 10 mg PO Q6 PRN #8 tab 09/01/18 Rx Patient History Medical History Mastitis (Acute) Migraines Asthma (Chronic) Resolved, has not used inhaler in years/\. SI (sacroiliac) joint dysfunction (Chronic) Right cervical radiculopathy (Acute) Lumbar radiculopathy (Acute) PTSD (post-traumatic stress disorder) (Chronic) Anemia Gestational diabetes Obesity Surgical History History of appendectomy (Resolved) History of wisdom tooth extraction (Resolved) History of tonsillectomy (Resolved) Status post arthroscopy of hip (Resolved) History of lumbar fusion L4-L5, 2016 Status post repair of glenoid labrum Right hip Family History Father Hypertension Social History Preferred Language: Kiswahili Communication Ability: Effective Fiber Designer Required: No Beliefs That Will Affect Care: None marital status: Current Living Situation: Alone Current Living Situation Comment: lives with 6-wk-old baby, no other adults Other Information That Helps Us Care for You: No Feels Safe at Home: Yes Safety Concerns: Feels Safe At This Time Smoking Status: Never smoker Do You Dip or Chew Tobacco: No Second Hand Exposure: No Tobacco Cessation Education Requested by Patient: No Hx Alcohol Use: Yes (not currently) Alcohol type: beer Hx Substance Use: No Review of Systems Review of Systems: ROS: well nourished well developed. No double vision blurry vision no recurrence of her headache No problems with speech or swallowing No palpitations, some breast pain consistent with her mastitis No Wheezing or breathing issues No abdominal pain nausea vomiting diarrhea changes in appetite or weight No burning urine urine frequency or changes in color No focal joint pain or muscle pain No skin rashes or oral lesions No unusual bruising or bleeding No focused back pain or numbness or loss of strength No changes in memory or confusion Physical Exam Physical Exam: The patient appeared well nourished and normally developed. Vital signs as documented. Head exam is unremarkable. normocephalic, atraumatic Neck is without jugular venous distension, thyromegaly, or lymphademopathy Lungs are clear to auscultation and percussion. Cardiac exam reveals Rhythm is regular. First and second heart sounds normal. Abdominal exam reveals normal bowel sounds, no masses, no organomegaly Extremities are nonedematous and both pedal pulses are present Neurologic exam is A&Ox3, no focal deficits, strength is equal bilateral Psychologically seems neither anxious or depressed Skin is warm Dry without bruises or lesions Results & Data Vital Signs (Past 12 Hours) Vital Signs Temp Pulse Resp BP BP Pulse Ox 09/01/18 14:20 36.7 C 58 L 20 150/88 H 95 09/01/18 11:25 36.8 C 62 18 144/83 H 96 09/01/18 08:45 61 156/84 H 09/01/18 08:01 153/97 H 09/01/18 08:00 36.7 C 59 L 18 161/102 H 97 09/01/18 04:10 36.7 C 63 16 149/83 H 96
[2018-09-02] MEDS ORDERED: VANCOMYCIN TROUGH ONE (03:30)
--- NOTE | 2018-09-06 07:30 | Discharge Summary ---
Date of Service September 06, 2018 Patient was admitted for severe mastitis on August 28 at that time she was started on ceftriaxone and vancomycin initially she was still spiking temperatures in the first 24 hours blood cultures were done which ended up being positive. The patient received IV antibiotics until September 01 at that time she was discharged home by Dr. Marin on Omnicef she was given instructions for follow-up At the time of discharge the patient per Dr. Marin's notes was doing significantly better with less pain significantly less redness she had been brigitte ged and an abscess had been ruled out by ultrasound on August 30 Admission Exam (Per Admitting) Constitutional WD/WN, vitals as above Respiratory normal respiratory effort, lungs clear to auscultation Cardiovascular RRR, no murmur, no edema Discharge Data Consultations 08/28/18 19:22 ED Decision to Admit Stat 09/01/18 08:39 Consult Hospitalist Routine Hospital Course (1) Mastitis:
== END 2018-09-01 16:35 | disposition home or self-care (01) | DRG 776 ==
LOC: ED 16:52 → 4N 16:52
DX: O99.355 Diseases of the nervous system complicating the puerperium; O99.53 Diseases of the respiratory system complicating the puerperium; E66.9 Obesity, unspecified; F43.10 Post-traumatic stress disorder, unspecified; B96.89 Other specified bacterial agents as the cause of diseases classified elsewhere; F41.9 Anxiety disorder, unspecified; Z79.899 Other long term (current) drug therapy; O99.215 Obesity complicating the puerperium; R03.0 Elevated blood-pressure reading, without diagnosis of hypertension; G43.909 Migraine, unspecified, not intractable, without status migrainosus; Z82.49 Family history of ischemic heart disease and other diseases of the circulatory system; Z68.29 Body mass index [BMI] 29.0-29.9, adult; T39.395A Adverse effect of other nonsteroidal anti-inflammatory drugs [NSAID], initial encounter; Z79.3 Long term (current) use of hormonal contraceptives; J45.909 Unspecified asthma, uncomplicated; R78.81 Bacteremia; O91.22 Nonpurulent mastitis associated with the puerperium; O99.345 Other mental disorders complicating the puerperium